=== PATIENT | female | born 1975 | race Caucasian/White ===

== ENCOUNTER 2018-06-25 21:17 | Emergency (ER) | payer MEDICAID ==
[~2018-06-25] VITALS: Ht 172.7 cm; Wt 70.0 kg
[2018-06-26] MEDS ORDERED: LIDOCAINE-MPF 1%, 2ML INFIL ONE
[2018-06-26] MEDS ORDERED: LIDOCAINE-MPF 1%, 2ML ONE (00:15)
[2018-06-26 01:02] VITALS: BP 111/78
== END 2018-06-26 01:05 | disposition home or self-care (01) ==
LOC: ED 23:59
DX: L02.414 Cutaneous abscess of left upper limb (principal); L02.31 Cutaneous abscess of buttock; J45.909 Unspecified asthma, uncomplicated
CPT/HCPCS: 10060; 99283

== ENCOUNTER 2018-11-04 15:14 | Emergency (ER) | payer MEDICAID ==
[~2018-11-04] VITALS: Ht 172.7 cm; Wt 68.4 kg
[2018-11-04 15:29] VITALS: BP 136/85
== END 2018-11-04 15:55 | disposition home or self-care (01) ==
LOC: ED 15:45
DX: H66.001 Acute suppurative otitis media without spontaneous rupture of ear drum, right ear (principal); J45.909 Unspecified asthma, uncomplicated; F17.200 Nicotine dependence, unspecified, uncomplicated
CPT/HCPCS: 99283

== ENCOUNTER 2019-02-18 06:48 | Emergency (ER) | payer MEDICAID ==
[~2019-02-18] VITALS: Ht 172.7 cm; Wt 64.0 kg
[2019-02-18 06:52] VITALS: BP 128/82
--- NOTE | 2019-02-18 07:22 | NUR ---
FINGERSTICK GLUCOSE TAKEN WITH A RESULT OF 78MG/DL. RESULTS GIVEN TO DR. DEJESUS.
[2019-02-18] MEDS ORDERED: GABA300C10 PO (07:27)
[2019-02-18] MEDS ORDERED: SUMA25TA4 PO (07:29)
--- NOTE | 2019-02-18 07:34 | NUR ---
3 PAIRS OF CLEAN SOCKS GIVEN TO PATIENT.
--- NOTE | 2019-02-18 08:22 | NUR ---
Patient/Caregiver given discharge instructions and they have confirmed that they understand the instructions. Patient ambulatory with steady gait.
== END 2019-02-18 08:23 | disposition home or self-care (01) ==
LOC: ED 08:08
DX: L03.115 Cellulitis of right lower limb (principal); L03.116 Cellulitis of left lower limb; J45.909 Unspecified asthma, uncomplicated
CPT/HCPCS: 82962; 99283

== ENCOUNTER 2021-06-23 13:36 | Emergency (ER) | payer MEDICAID ==
[~2021-06-23] VITALS: Ht 172.7 cm; Wt 69.5 kg
[~2021-06-23 13:36] MED LIST: GABA300C10 PO; SUMA25TA4 PO
[2021-06-23 13:41] VITALS: BP 112/67
--- NOTE | 2021-06-23 13:45 | NUR ---
[facility] IN [employer] C[employer]. PT IN ALTERCATION EITHER LAST NIGHT OR THIS AM. PT C/O R HAND PAIN, LEFT KNEE ABRASION, LEFT EYE SWELLING/BRUISE. PT AMBULATORY. PT GIVEN TICKET BY [employer] AND RELEASED FROM CUSTODY. PT CONNECTED TO MONITORING. PT DENIES DRUGS/ETOH. PT BEING RUDE AND BELIGERANT. PT COMPLIANT WITH APPLYING MONITORING. CALL LIGHT IN REACH. REPORT GIVEN TO LEOPOLDO RAIN, PRIMARY RN/
--- NOTE | 2021-06-23 14:04 | NUR ---
PATIENT STANDING IN HALLWAY, STATES " I NEED TO GET OUT OF HERE." PATIENT NOT ON HOLD, ERMD STATES PATIENT CAN LEAVE. PATIENT KEEPS SAYING "CALL MY KELSI, WHAT YOU LOOKING AT [place]IG[place], STOP LOOKING AT ME" TO STAFF MEMEBERS. PATIENT AMBULATORY WITH STEADY GAIT FROM ED.
--- NOTE | 2021-06-23 14:05 | NUR ---
PT LEFT ED PRIOR TO BEING SEEN BY CIPRIANO. PT AMBULATED OUT OF DEPT WITH STEADY GAIT, YELLING PROFANITIES.
== END 2021-06-23 14:07 | disposition left against medical advice (07) ==
LOC: ED 14:00
DX: M79.641 Pain in right hand (principal); Z53.21 Procedure and treatment not carried out due to patient leaving prior to being seen by health care provider

== ENCOUNTER 2021-08-29 11:34 | Emergency (ER) | payer MEDICAID ==
[~2021-08-29] VITALS: Ht 172.7 cm; Wt 74.1 kg
[2021-08-29 11:56] VITALS: BP 129/88
[2021-08-29] MEDS ORDERED: IBUPROFEN 600 MG TABLET ONE (12:42)
[2021-08-29] MEDS ORDERED: IBUPROFEN 600 MG TABLET PO ONE (13:00)
--- NOTE | 2021-08-29 13:23 | NUR ---
ALL RESULTS ARE BACK AT THIS TIME. CHART UP FOR RECHECK.
== END 2021-08-29 14:02 | disposition home or self-care (01) ==
LOC: ED 11:55
DX: L03.115 Cellulitis of right lower limb (principal); S81.811D Laceration without foreign body, right lower leg, subsequent encounter; J45.909 Unspecified asthma, uncomplicated; X58.XXXD Exposure to other specified factors, subsequent encounter
CPT/HCPCS: 99283